=== PATIENT | female | born 1980 | race African-American/Black ===

== ENCOUNTER 2025-03-26 08:11 | Emergency (ER) | payer OTHER, SELFPAY ==
[2025-03-26 08:24] VITALS: BMI 35.3
[2025-03-26 09:11] LABS: Hematocrit 26.8 % (37.0-47.0); Hemoglobin 8.3 g/dL (12.0-16.0); Mean Corp Hgb Conc. 31.0 g/dL (33.0-37.0); Mean Corpuscular Volume 66.0 fL (81.0-99.0); Nucleated Red Blood Cells % 0 %; Platelet Count 247 10^3/uL (130-400); Red Cell Dist. Width 22.3 % (11.5-14.5)
--- NOTE | 2025-03-26 09:12 | ED.GENMED ---
History of Present Illness
General
Chief Complaint: Vaginal Bleeding
Source: patient
Exam Limitations: none
Time Seen by Provider: 03/26/25 08:21
Nursing documentation reviewed up to this point in time: agreed with
History of Present Illness
History of Present Illness:
Patient is a 45-year-old female who presents to the emergency department with concerns of vaginal bleeding. Patient states that she started with vaginal bleeding yesterday evening and initially thought that it was her menses although she was
not expecting her menstrual cycle for another week. Around midnight last night she states bleeding increasing definitely. She states that since last night she has been bleeding through a pad about every 1.5 -2 hours. She also reports passing
small blood clots.
She did have 1 episode of vomiting this morning and reports some lower abdominal cramping. She states that she feels mildly lightheaded however denies any shortness of breath or chest pain.
Patient states she has not seen her DESK LIEUTENANT for the past 2 years as her insurance changed. She does have known uterine fibroids however never had ultrasound imaging performed.
LMP was mid February. No history of abnormal Pap smears.
Past History
Past History
ED Past Medical History: None
ED Past Surgical History: None
Review of Systems
Review of Systems
Allergies reviewed?: Yes
All Other Systems: ROS reviewed and negative except as documented in HPI and ROS
Phy Exam
Physical Exam
Physical Exam:
Vitals: Patient's vital signs are stable. Afebrile
General: Patient is well appearing, no acute distress. Nontoxic appearing
Skin: Warm and dry, no rashes or lesions
Head: Normocephalic, atraumatic
Eyes: Sclera nonicteric.
Throat: Protecting airway
Neck: Normal ROM, no cervical spine tenderness, no meningismus
Cardiac: Regular rate and rhythm, no murmurs.
Pulm: Normal respiratory effort, no wheezes, rales, rhonchi heard on exam
Abdomen: Abdomen soft. Reproducible tenderness in left pelvic region. No rebound tenderness or guarding.
Pelvic: Blood in vaginal vault w/ small clots present.
Extremities: No evidence of cyanosis or edema. 2+ palpable DP pulses bilaterally
Neuro: AAOx3. Grossly intact.
Psychiatric: Normal affect.
Course
Orders/Labs/Results
Orders:
Orders
03/26/25 08:35
Test Result ONCE
03/26/25 08:36
Basic Metabolic Panel Urgent
Complete Blood Count/With Diff Urgent
03/26/25 09:09
0.9% Sodium Chloride 1000 ml [Nss] 1,000 ml IV BOLUS
Ketorolac [Toradol] 15 mg IV NOW STA
Pelvis & Transvaginal US [US Pelvis W Transvag Combined] Urgent
Comment:
Reason For Exam: vaginal bleeding, left pelvic pain
03/26/25 10:05
Add On- LAB Urgent
Tests Added?: potassium
03/26/25 10:31
Add On- LAB Urgent
Tests Added?: urine hcg
03/26/25 14:06
HCG, Urine Qualitative Screen Urgent
Date Specimen was Collected: 03/26/25
Time Specimen was Collected: 10:41
Urinalysis Reflex To Culture Urgent
Date Specimen was Collected: 03/26/25
Time Specimen was Collected: 10:41
Urine Microscopic Reflex Cult Urgent
03/26/25 16:00
Tranexamic Acid [Cyklokapron] 1,300 mg PO TID
Abnormal Lab Results
03/26/25 03/26/25
08:36 14:06
WBC 14.4 H 10^3/uL
(4.8-10.8)
RBC 4.06 L 10^6/uL
(4.20-5.40)
Hgb 8.3 L g/dL
(12.0-16.0)
Hct 26.8 L %
(37.0-47.0)
MCV 66.0 L fL
(81.0-99.0)
MCH 20.4 L pg
(27.0-31.0)
MCHC 31.0 L g/dL
(33.0-37.0)
RDW 22.3 H %
(11.5-14.5)
Abs Immat Gran (auto) 0.1 H 10^3/uL
(0-0.05)
Absolute Neuts (auto) 13.3 H 10^3/uL
(1.4-6.5)
Absolute Lymphs (auto) 0.7 L 10^3/uL
(1.2-3.4)
Neutrophils % 91.9 H %
(42.2-75.2)
Lymphocytes % 4.5 L %
(20.5-51.1)
Chloride 110 H mmol/L
(98-107)
Carbon Dioxide 19 L mmol/L
(22-30)
Creatinine 0.5 L mg/dL
(0.6-1.0)
Glucose 127 H mg/dl
(70-99)
Ur Occult Blood Reflex 4+ A
(Negative)
Urine RBC 40-50 A /HPF
(0-2)
03/26/25 08:36
03/26/25 10:31
Vital Signs
Initial and Last Documented VS:
Initial Vital Signs
Temp Pulse Resp Pulse Ox
98.4 F 85 16 98
03/26/25 08:13 03/26/25 08:13 03/26/25 08:13 03/26/25 08:13
Last Documented Vital Signs
Temp Pulse Resp BP Pulse Ox
98.4 F 80 18 115/80 100
03/26/25 08:13 03/26/25 15:10 03/26/25 15:10 03/26/25 15:10 03/26/25 15:10
MDM/Problems Addressed
Differential Diagnosis Includes:
Not limited to: Menstrual bleeding, abnormal uterine bleeding secondary to uterine fibroids, uterine polyp, malignancy
MDM/Problems Addressed:
45-year-old female with history anemia with 1 day of abnormal uterine bleeding and mild lower abdominal cramping. She had 1 episode of vomiting. No fevers, diarrhea, or anorexia. Patient hemodynamically stable on arrival. Physical exam as above.
Patient well-appearing, in no apparent distress. Abdomen soft without any areas of focal tenderness. She is perfusing well. Pelvic exam does reveal blood in vaginal vault with small clots. Patient is premenopausal. Differential at this point
broad. This may be normal menstrual bleeding however patient states began a few days earlier than expected. Will check lab work and obtain pelvic ultrasound.
Update: Labs reviewed. Leukocytosis noted�possibly reactive from vomiting. Hemoglobin of 8.3. Upon discussion with patient that she does report a history of anemia with possibly a most recent hemoglobin of 6 and she had a transfusion. Ultrasound
shows uterine fibroid without any other acute abnormalities. Urine does not appear infected. Patient is well-appearing and hemodynamically stable. Transfusion not indicated. Case was discussed with DESK LIEUTENANT on-call�will plan to start TXA and have
patient follow-up outpatient. Strict return precautions discussed, patient expressed verbal understanding. She will follow-up with DESK LIEUTENANT outpatient.
Chronic conditions affecting care:
N/A
Acute Exacerbation and/or Progression of Chronic Illness:
Abnormal uterine bleeding
*Radiology
Radiology exam reviewed: radiology read reviewed
*Pulse Oximetry
SaO2: 98
Oxygen Mode of Delivery: Room air
Patient hypoxic: no
*EKG
Interpreted by ED Provider?: NA
*Echo Tech Interpretation
Rate: Echo Tech- N/A
*Critical Care Note
Total Time (30-74mins, 75-104mins- exclusive of procedures): Not Applicable
Patient Management
Discussion with other providers: Railroader (Case discussed with OBGYN)
ED Attending Note
-
Portions of this chart may have been created with voice recognition software.� Occasional wrong word or��sound alike� substitutions may have occurred due to the inherent limitations of voice recognition software.
Discharge Plan
Departure
Patient Disposition: Home (Routine Discharge)
Date of Disposition: 03/26/25
Time of Disposition: 14:55
Patient with high blood pressure during this ER visit?: No
Discharge Problem:
Vaginal bleeding
Instructions: Heavy periods - ED discharge instructions
Prescriptions:
New
tranexamic acid 650 mg tablet
1,300 mg PO TID 5 Days Qty: 30 0RF
No Action
cyclobenzaprine 10 MG tablet
10 mg PO TIDPRN PRN (Reason: muscle spasms) Qty: 15 0RF
Referrals:
Donovan Penny DO [Family Provider, Family Practice]
Henna Vieyra DO [Active, Gynecology] - Follow up in 2-3 days
Activity Restrictions/Additional Instructions:
RETURN TO THE EMERGENCY DEPARTMENT FOR ANY PERSISTENT HEAVY VAGINAL BLEEDING, SHORTNESS OF BREATH, ABDOMINAL PAIN, LIGHTHEADEDNESS/DIZZINESS OR EPISODES OF FAINTING, WORSENING IN CURRENT SYMPTOMS, OR ANY OTHER CONCERNS
-You came to the emergency department today with concerns of heavy vaginal bleeding. This may be secondary to a heavy menstrual period or related to your uterine fibroid.
- As discussed�your hemoglobin was low at 8.3 today. Please ensure that you have repeat lab work to ensure this level is trending up. Your white blood cell count was also elevated which may be secondary to the vomiting although please ensure that
this returns to normal
- A prescription for tranexamic acid has been sent to your pharmacy which you should take 3 times a day for the next 5 days or until bleeding stops.
- It is very important you follow closely with DESK LIEUTENANT for further evaluation/management. Contact information has been provided for you above.
Monitor your symptoms very closely and return to the emergency department with any acute worsening/new symptoms or any persistent bleeding
Interventions
Interventions:
*Risk Screen - Suicide Last Done: 03/26/25 08:13
*General Assessment Last Done: 03/26/25 08:24
*Neglect/Abuse Screening Last Done: 03/26/25 08:13
*ED- Fall Risk Assessment Last Done: 03/26/25 08:24
*ED COVID-19 Vaccine History Last Done: 03/26/25 08:24
*Nursing Disposition Last Done: 03/26/25 15:11
ED-Female Genitourinary Assessment Last Done: 03/26/25 08:24
Discharge Date and Time
Discharge Date/Time: 03/26/25 15:12
Print Language: BENGALI
[2025-03-26] MEDS: TORADOL 15 MG IV (09:19)
[2025-03-26] MEDS: NSS 1000 IV (09:19)
[2025-03-26 09:22] VITALS: BP 125/78
[2025-03-26 09:28] LABS: Blood Urea Nitrogen 9 mg/dl (7-17); Calcium 8.9 mg/dl (8.4-10.2); Carbon Dioxide 19 mmol/L (22-30); Chloride 110 mmol/L (98-107); Estimated Creatinine Clearance 120 ml/min; Glucose 127 mg/dl (70-99); Sodium 137 mmol/L (135-145); eGFR > 60.00
[2025-03-26 10:00] VITALS: BP 116/86
[2025-03-26 14:35] LABS: HCG, Urine Qualitative Screen Negative; Urine Character Clear (Clear)
[2025-03-26 14:59] LABS: Urine Squamous Cell 16-20 /LPF (Few); Urine White Cell 0-2 /HPF (0-5)
[2025-03-26 15:00] LABS: Urine Red Blood Cell 40-50 /HPF (0-2)
[2025-03-26] MEDS: CYKLOKAPRON 1300 MG PO (15:00)
[2025-03-26 15:10] VITALS: BP 115/80
== END 2025-03-26 15:12 | disposition home or self-care (01) ==
LOC: EMR 08:11
PROVIDERS: Physician Assistant; EMERGENCY PHYSICIAN Emergency Medicine; FAMILY PHYSICIAN Family Medicine
DX: N93.9 Abnormal uterine and vaginal bleeding, unspecified (principal); D64.9 Anemia, unspecified; D25.9 Leiomyoma of uterus, unspecified; D72.829 Elevated white blood cell count, unspecified
CPT/HCPCS: 99284; 96374; 96361; 76830; 76856; 80048; 81003; 81015; 81025; 85025

== ENCOUNTER 2025-04-02 12:48 | Emergency (ER) | payer OTHER, SELFPAY ==
[2025-04-02] VITALS (8 sets, daily range): BP systolic 129–166; BP diastolic 72–108
[2025-04-02 13:40] LABS: Hematocrit 20.1 % (37.0-47.0); Hemoglobin 6.1 g/dL (12.0-16.0); Mean Corp Hgb Conc. 30.3 g/dL (33.0-37.0); Mean Corpuscular Volume 68.1 fL (81.0-99.0); Nucleated Red Blood Cells % 0.7 %; Platelet Count 295 10^3/uL (130-400); Red Cell Dist. Width 24.8 % (11.5-14.5)
[2025-04-02 13:48] LABS: Anisocytosis 2+; Hypochromasia 2+; Microcytosis 2+; Normal RBC Morphology No
[2025-04-02 13:49] LABS: Polychromasia 1+
[2025-04-02 14:05] LABS: HCG, Serum Qualitative Screen Negative
[2025-04-02 14:23] LABS: ALT (SGPT) 25 U/L (0-35); AST (SGOT) 22 U/L (14-36); Albumin 3.6 g/dl (3.5-5.0); Alkaline Phosphatase 72 U/L (38-126); Blood Urea Nitrogen 8 mg/dl (7-17); Calcium 8.6 mg/dl (8.4-10.2); Carbon Dioxide 22 mmol/L (22-30); Chloride 112 mmol/L (98-107); Glucose 95 mg/dl (70-99); Potassium 4.2 mmol/L (3.5-5.1); Sodium 140 mmol/L (135-145); Total Protein 6.5 g/dl (6.3-8.2); eGFR > 60.00
--- NOTE | 2025-04-02 15:19 | ED.GENMED ---
History of Present Illness
<Laina Bhardwaj PA-C - Last Filed: 04/02/25 18:31>
General
Chief Complaint: Abnormal Lab Value
Source: patient and records
Exam Limitations: none
Time Seen by Provider: 04/02/25 14:59
History of Present Illness
History of Present Illness:
45yoF with a history of uterine fibroids presenting for evaluation of an abnormal outpatient lab. Patient was seen in the ED 1 week ago for vaginal bleeding. Hemoglobin was 8.3 at that time. Pelvic ultrasound showed evidence of a fibroid and an
endometrial stripe of 18mm. Patient was discharged with a prescription for oral TXA. She took her last dose this morning. She states her bleeding has significantly improved and she only had to use 1 panty liner yesterday and 1 panty liner so far
today. She did see her MILL HOUSE SUPERVISOR 2 days ago[address] Citlaly Hart ([facility]) and saw the PARTITION SETTER at the office. She had an endometrial biopsy during her appointment. She was given options including a myomectomy or hysterectomy but she is
still deciding how she wants to proceed. She had outpatient blood work yesterday. She called the infusion center today to schedule her iron infusions for next week and she was told to go to the ED for a hemoglobin of 6.0. Patient is symptomatic
with fatigue and dizziness. She denies any syncope. She is not currently on any prescription iron supplements but does take Floradix OTC.
Past History
<Laina Bhardwaj PA-C - Last Filed: 04/02/25 18:31>
Past History
ED Past Medical History: None
ED Past Surgical History: None
Phy Exam
<Laina Bhardwaj PA-C - Last Filed: 04/02/25 18:31>
General Physical Exam
General Presentation: well appearing and no apparent distress
General Skin: warm and dry
General Habitus: normal
General Mental: alert
ENT Exam
ENT Exam: normocephalic
Pulmonary Exam
Pulmonary Exam: no respiratory distress
Gastrointestinal Exam
Gastrointestinal Exam: non tender, soft and non distended
Genitourinary Exam Female
Exam Female: other (Small amount of vaginal bleeding noted on speculum exam. No clots.)
Neurological Exam
Neurological Exam: alert
[place] Coma Scale
Eye Opening: Spontaneous
Verbal Response: Oriented
Motor Response: Obeys Commands
GCS Total Score: 15
Skin Exam
Skin Exam: normal color and warm/dry
Psychiatric Exam
Psychiatric Exam: normal mood/affect
<Ho Garcia MD - Last Filed: 04/02/25 19:08>
[place] Coma Scale
GCS Total Score: 15
Course
<Laina Bhardwaj PA-C - Last Filed: 04/02/25 18:31>
Orders/Labs/Results
Orders:
Orders
04/02/25 13:05
Test Result ONCE
04/02/25 13:18
Type+Screen Urgent
Complete Blood Count/With Diff Urgent
Comprehensive Metabolic Panel Urgent
HCG, Serum Qualitative Screen Urgent
04/02/25 14:50
ABO2 Routine
BBK Wristband Number:
Associate notified that ABO2 has been ordered: [id number]
Date: 04/02/25
Time: 13:43
Electrical Sign Wirer ID: [id number]
04/02/25 15:13
Blood Bank Products [* Blood Bank Products] Urgent
Blood Bank Products: *Packed RBC Leuko(PRBC's)
Quantity: 1
Transfuse Today: Yes
Reason: Anemia
Abnormal Lab Results
04/02/25
13:18
WBC 12.0 H 10^3/uL
(4.8-10.8)
RBC 2.95 L 10^6/uL
(4.20-5.40)
Hgb 6.1 L* g/dL
(12.0-16.0)
Hct 20.1 L* %
(37.0-47.0)
MCV 68.1 L fL
(81.0-99.0)
MCH 20.7 L pg
(27.0-31.0)
MCHC 30.3 L g/dL
(33.0-37.0)
RDW 24.8 H %
(11.5-14.5)
Abs Immat Gran (auto) 0.1 H 10^3/uL
(0-0.05)
Absolute Neuts (auto) 9.0 H 10^3/uL
(1.4-6.5)
Absolute Lymphs (auto) 1.1 L 10^3/uL
(1.2-3.4)
Absolute Monos (auto) 1.4 H 10^3/uL
(0.1-0.6)
Immature Gran % 0.8 H %
(0-0.5)
Lymphocytes % 9.5 L %
(20.5-51.1)
Monocytes % 11.8 H %
(1.7-9.3)
Chloride 112 H mmol/L
(98-107)
Crossmatch IS Only See Detail
04/02/25 13:18
04/02/25 13:18
Vital Signs
Initial and Last Documented VS:
Initial Vital Signs
Temp Pulse Resp BP Pulse Ox
99.4 F 87 18 129/72 100
04/02/25 12:59 04/02/25 12:59 04/02/25 12:59 04/02/25 12:59 04/02/25 12:59
Last Documented Vital Signs
Temp Pulse Resp BP Pulse Ox
98.8 F 75 19 136/92 100
04/02/25 17:30 04/02/25 17:30 04/02/25 17:30 04/02/25 17:30 04/02/25 17:30
<Ho Garcia MD - Last Filed: 04/02/25 19:08>
Orders/Labs/Results
Orders:
Orders
04/02/25 13:05
Test Result ONCE
04/02/25 13:18
Type+Screen Urgent
Complete Blood Count/With Diff Urgent
Comprehensive Metabolic Panel Urgent
HCG, Serum Qualitative Screen Urgent
04/02/25 14:50
ABO2 Routine
BBK Wristband Number:
Associate notified that ABO2 has been ordered: [id number]
Date: 04/02/25
Time: 13:43
Electrical Sign Wirer ID: [id number]
04/02/25 15:13
Blood Bank Products [* Blood Bank Products] Urgent
Blood Bank Products: *Packed RBC Leuko(PRBC's)
Quantity: 1
Transfuse Today: Yes
Reason: Anemia
Abnormal Lab Results
04/02/25
13:18
WBC 12.0 H 10^3/uL
(4.8-10.8)
RBC 2.95 L 10^6/uL
(4.20-5.40)
Hgb 6.1 L* g/dL
(12.0-16.0)
Hct 20.1 L* %
(37.0-47.0)
MCV 68.1 L fL
(81.0-99.0)
MCH 20.7 L pg
(27.0-31.0)
MCHC 30.3 L g/dL
(33.0-37.0)
RDW 24.8 H %
(11.5-14.5)
Abs Immat Gran (auto) 0.1 H 10^3/uL
(0-0.05)
Absolute Neuts (auto) 9.0 H 10^3/uL
(1.4-6.5)
Absolute Lymphs (auto) 1.1 L 10^3/uL
(1.2-3.4)
Absolute Monos (auto) 1.4 H 10^3/uL
(0.1-0.6)
Immature Gran % 0.8 H %
(0-0.5)
Lymphocytes % 9.5 L %
(20.5-51.1)
Monocytes % 11.8 H %
(1.7-9.3)
Chloride 112 H mmol/L
(98-107)
Crossmatch IS Only See Detail
04/02/25 13:18
04/02/25 13:18
Vital Signs
Initial and Last Documented VS:
Initial Vital Signs
Temp Pulse Resp BP Pulse Ox
99.4 F 87 18 129/72 100
04/02/25 12:59 04/02/25 12:59 04/02/25 12:59 04/02/25 12:59 04/02/25 12:59
Last Documented Vital Signs
Temp Pulse Resp BP Pulse Ox
98.8 F 75 19 136/92 100
04/02/25 17:30 04/02/25 17:30 04/02/25 17:30 04/02/25 17:30 04/02/25 17:30
[place];Laina Bhardwaj PA-C - Last Filed: 04/02/25 18:31>
MDM/Problems Addressed
Differential Diagnosis Includes:
45yoF here with a hemoglobin of 6.0 on outpatient labs yesterday. Seen in ED 1 week ago for vaginal bleeding and hemoglobin was 8.3 at that time. Finished course of oral TXA this morning and bleeding much improved. Only used 1 panty liner yesterday
and 1 so far today. C/o fatigue and dizziness. VSS. She is well appearing in no distress. Only a small amount of vaginal bleeding noted on speculum exam. Differential diagnosis includes but is not limited to: Acute blood loss anemia, menorrhagia,
vaginal bleeding related to fibroids
Triage lab work obtained and hemoglobin is 6.1 today. Consent obtained and 1 unit PRBCs ordered for transfusion. I called her OB office and spoke with Robert gear hobber operator, at the office who agrees with discharge after transfusion given that bleeding has
significantly improved. Will start patient on prescription iron supplement as she is only taking something OTC. The OB office will call patient on Saturday to ensure the outpatient iron infusions are scheduled. Patient in agreement with plan and was
discharged in stable condition after transfusion complete.
<Laina Bhardwaj PA-C - Last Filed: 04/02/25 18:31>
*Pulse Oximetry
SaO2: 100
Oxygen Mode of Delivery: Room air
Patient hypoxic: no (100%)
*Critical Care Note
Total Time (30-74mins, 75-104mins- exclusive of procedures): Not Applicable
ED Attending Note
<Laina Bhardwaj PA-C - Last Filed: 04/02/25 18:31>
-
Portions of this chart may have been created with voice recognition software.� Occasional wrong word or��sound alike� substitutions may have occurred due to the inherent limitations of voice recognition software.
<Ho Garcia MD - Last Filed: 04/02/25 19:08>
ED Attending Note
Patient seen and examined by attending physician: Yes
I performed the substantive portion of visit, reviewed & personally made and approve the management plan that is documented in note by myself or RICKY.: Yes
ED Attending Note:
Patient sent in for low hemoglobin. Has had ongoing vaginal bleeding. Seen last week for same. Ultrasound at that time showed fibroids. Had a recent endometrial biopsy. Hemoglobin yesterday was 6.0. Feels generally weak but not unusually weak.
No abdominal pain. Bleeding is minimal.
On exam patient is nontoxic in no distress. Stable vital signs. Abdomen soft nontender. Warm and dry. Perfusing well. No respiratory distress.
Bleeding is almost nonexistent on the TXA. Reasonable to give a unit of blood and close follow-up. This was discussed with patient's MILL HOUSE SUPERVISOR by our physician diver assistant. Patient is comfortable with this approach
Discharge Plan
Departure
Patient Disposition: Home (Routine Discharge)
Date of Disposition: 04/02/25
Time of Disposition: 17:33
Patient with high blood pressure during this ER visit?: No
Discharge Problem:
Acute blood loss anemia
Instructions: Anemia in adults, possibly from low iron - ED discharge instructions
Prescriptions:
New
ferrous gluconate 324 mg (38 mg iron) tablet
324 mg PO DAILY Qty: 30 0RF
No Action
tranexamic acid 650 mg tablet
1,300 mg PO TID 5 Days Qty: 30 0RF
Rx Instructions:
for 5 days starting 03/26/25
naproxen 500 mg Tablet
500 mg PO DAILYPRN PRN (Reason: mild pain)
Referrals:
Donovan Penny DO [Family Provider, Family Practice]
Stand Alone Forms: Return to Work
Activity Restrictions/Additional Instructions:
Take iron supplement as prescribed.
Please follow-up with your MILL HOUSE SUPERVISOR on Saturday. Return to the ER with any worsening symptoms including passing out or heavy vaginal bleeding.
Interventions
Interventions:
*Risk Screen - Suicide Last Done: 04/02/25 12:59
*General Assessment Last Done: 04/02/25 12:59
*Neglect/Abuse Screening Last Done: 04/02/25 12:59
*ED- Fall Risk Assessment Last Done: 04/02/25 15:05
*ED COVID-19 Vaccine History Last Done: 04/02/25 15:05
*Nursing Disposition Last Done: 04/02/25 17:38
Discharge Date and Time
Discharge Date/Time: 04/02/25 17:38
Print Language: [id number]
== END 2025-04-02 17:38 | disposition home or self-care (01) ==
LOC: EMR 12:48
PROVIDERS: Emergency Medicine; EMERGENCY PHYSICIAN Emergency Medicine; FAMILY PHYSICIAN Family Medicine
DX: D62 Acute posthemorrhagic anemia (principal); Z86.018 Personal history of other benign neoplasm
CPT/HCPCS: 99282; 36430; 80053; 84703; 85025; 86850; 86900; 86901; 86920; P9016

== ENCOUNTER 2025-05-17 12:15 | Emergency (ER) | payer OTHER, SELFPAY ==
[2025-05-17 12:16] VITALS: BP 132/92
--- NOTE | 2025-05-17 13:54 | ED.GENMED ---
History of Present Illness
General
Chief Complaint: Breathing Problem
Source: patient
Time Seen by Provider: 05/17/25 13:44
History of Present Illness
History of Present Illness:
45 yr old female presents to ED with c/o persistent cough (dry) and sob for at least a few weeks...getting worse this weekend, which prompted her visit here. She denies f/c/n/v/abd pain/neck or back pain. No leg swelling, but does feel thigh area
is 'sensitive' which is new since starting the OCP. She suspects it is related to that. She denies smoking hx, st, rhinorrhea. She has intermittent nonpleuritic cp which has been worked up thus far, unremkarable. Pt recently tx'd for bleeding
related to fibroid, but on ocp, getting Fe tx.
Past History
Past History
ED Past Medical History: Other (fibroid)
ED Past Surgical History: None
Social History
Tobacco: Non-smoker
Alcohol: Occasional
Drug: None
Personal: Single
Phy Exam
Physical Exam
Physical Exam:
aao times three
pupils equal and round
mmm, o/p clear, voice clear
neck supple
hrt rrr
lung cta, no w/r/r
abd soft, nt, nd
extrem no c/c/e, neg homans
neuro intact
skin warm, well perfused
psych pleaseant appropriate
Scores
Heart Failure Risk
Heart Failure Risk Score: Not Applicable
Course
Orders/Labs/Results
Orders:
Orders
05/17/25 12:22
Electrocardiogram (*1) Urgent
Reason for Study: Tachycardia
05/17/25 12:23
EKG- Treatment ONCE
05/17/25 13:58
Basic Metabolic Panel Urgent
Complete Blood Count/No Diff Urgent
D-Dimer Urgent
05/17/25 14:33
CT Chest PE Study Urgent
Comment:
Reason For Exam: sob, on ocp, d dimer elevation
Abnormal Lab Results
05/17/25
13:58
WBC 12.0 H 10^3/uL
(4.8-10.8)
Hgb 10.6 L g/dL
(12.0-16.0)
Hct 32.9 L %
(37.0-47.0)
MCV 74.6 L fL
(81.0-99.0)
MCH 24.0 L pg
(27.0-31.0)
MCHC 32.2 L g/dL
(33.0-37.0)
RDW 24.7 H %
(11.5-14.5)
D-Dimer 0.67 H ug/mlFEU
(0.00-0.50)
05/17/25 13:58
05/17/25 13:58
Vital Signs
Initial and Last Documented VS:
Initial Vital Signs
Temp Pulse Resp BP Pulse Ox
98.4 F 106 18 132/92 98
05/17/25 12:16 05/17/25 12:16 05/17/25 12:16 05/17/25 12:16 05/17/25 12:16
Last Documented Vital Signs
Temp Pulse Resp BP Pulse Ox
98.4 F 106 18 132/92 98
05/17/25 12:16 05/17/25 12:16 05/17/25 12:16 05/17/25 12:16 05/17/25 13:58
MDM/Problems Addressed
Differential Diagnosis Includes:
but not limited to pe, gerd, anemia, reactive airway dz, acs, etc etc
*Pulse Oximetry
SaO2: 98
Oxygen Mode of Delivery: Room air
Patient hypoxic: no
*EKG
Interpreted by ED Provider?: Yes
Interpretation: normal
Rate: normal
Rhythm: sinus
[place]: normal axis
Ischemia: no ischemia
*Critical Care Note
Total Time (30-74mins, 75-104mins- exclusive of procedures): Not Applicable
Update Note
Update Note:
2:33 PM mild leukocytosis nonspecific, hemoglobin at 10.6 which is baseline as per patient. Very mild D-dimer elevation, cannot age-adjusted based on patient's age, therefore CT scan ordered
Patient presents to the Emergency Department with cp, sob, leg snesitivity
Number and Complexity of Problems Addressed at the Encounter
� Chronic conditions affecting care:
� Acute Exacerbation and/or Progression of Chronic Illness:
� Differential Diagnosis includes:
Amount and/or Complexity of Data to be Reviewed and Analyzed
� I performed an independent evaluation of and my interpretation is:
EKG: Read by me normal sinus rhythm, normal rate, normal axis, no acute ischemia
CT:Mild bilateral axillary lymphadenopathy.
2. Mild scarring and subsegmental atelectasis in the basilar segments of the lower lobes.
Xrays:
Laboratory Studies see above
Other:
� Review of other/old records reveals:
� Clinical information was obtained by an independent historian:
� Prescriptions/Medications Considered but not given:
� Further testing considered but not performed:
Risk of Complications and/or Morbidity or Mortality of Patient Management
� Social determinants of health affecting care:
� Discussion with other providers (PCP, Hospitalists, Consultants, etc):
� Escalation of care including admission/observation vs risk of discharge considered: Patient remained stable here. She has follow-up with pulmonary already arranged. She was given a copy of her CAT scan report as well as a
disk of the actual images to bring to her pulmonary doctor. I did alert her of the findings including the axillary lymphadenopathy and the importance of follow-up regarding.
ED Attending Note
-
Portions of this chart may have been created with voice recognition software.� Occasional wrong word or��sound alike� substitutions may have occurred due to the inherent limitations of voice recognition software.
Discharge Plan
Departure
Patient Disposition: Home (Routine Discharge)
Date of Disposition: 05/17/25
Time of Disposition: 17:44
Patient with high blood pressure during this ER visit?: Yes
Condition: Good
Discharge Problem:
Dyspnea, Cough
Instructions: Shortness of Breath (Dyspnea) (DC), BLOOD PRESSURE
Prescriptions:
No Action
tranexamic acid 650 mg tablet
1,300 mg PO TID 5 Days Qty: 30 0RF
Rx Instructions:
for 5 days starting 03/26/25
naproxen 500 mg Tablet
500 mg PO DAILYPRN PRN (Reason: mild pain)
ferrous gluconate 324 mg (38 mg iron) tablet
324 mg PO DAILY Qty: 30 0RF
Referrals:
Donovan Penny DO [Family Provider, Family Practice] - Next open appointment
Activity Restrictions/Additional Instructions:
PLEASE FOLLOW-UP WITH YOUR DOCTOR THIS WEEK. IF YOU DEVELOP BLEEDING, FEVER, INCREASING OR NEW SHORTNESS OF BREATH, RASH, SWELLING, WEAKNESS, NUMBNESS, ABDOMINAL PAIN, PERSISTENT CHEST PAIN, OR OTHER WORRISOME SIGNS, PLEASE RETURN TO THE ER
IMMEDIATELY!
Interventions
Interventions:
*Risk Screen - Suicide Last Done: 05/17/25 12:16
*Neglect/Abuse Screening Last Done: 05/17/25 12:16
ED- Cardiac Assessment Last Done: 05/17/25 13:59
ED- Pulmonary Assessment Last Done: 05/17/25 13:59
Discharge Date and Time
Print Language: [place]
[2025-05-17 14:00] VITALS: BMI 33.9
[2025-05-17 14:13] LABS: Hematocrit 32.9 % (37.0-47.0); Hemoglobin 10.6 g/dL (12.0-16.0); Mean Corp Hgb Conc. 32.2 g/dL (33.0-37.0); Mean Corpuscular Volume 74.6 fL (81.0-99.0); Platelet Count 275 10^3/uL (130-400); Red Cell Dist. Width 24.7 % (11.5-14.5)
[2025-05-17 14:21] LABS: D-Dimer 0.67 ug/mlFEU (0.00-0.50)
[2025-05-17 14:22] LABS: Blood Urea Nitrogen 9 mg/dl (7-17); Calcium 9.2 mg/dl (8.4-10.2); Carbon Dioxide 22 mmol/L (22-30); Chloride 107 mmol/L (98-107); Estimated Creatinine Clearance 101 ml/min; Glucose 87 mg/dl (70-99); Potassium 4.5 mmol/L (3.5-5.1); Sodium 137 mmol/L (135-145); eGFR > 60.00
--- NOTE | 2025-05-17 18:10 | EDRN ---
Attempted to copy films, disc burner not working. Pt informed. She will contact medical records prior to [place] [facility] f/u.
== END 2025-05-17 18:21 | disposition home or self-care (01) ==
LOC: EMR 12:15
PROVIDERS: EMERGENCY PHYSICIAN Emergency Medicine; FAMILY PHYSICIAN Family Medicine
DX: R06.00 Dyspnea, unspecified (principal); R05.9 Cough, unspecified; R00.0 Tachycardia, unspecified; D72.829 Elevated white blood cell count, unspecified; R59.0 Localized enlarged lymph nodes
CPT/HCPCS: 99284; 71275; 80048; 85027; 85379; 93005; Q9967

== ENCOUNTER 2025-06-10 08:27 | Outpatient (RCR) | payer OTHER, SELFPAY ==
[2025-06-10] MEDS: VENOFER 265 MG IV (09:01)
[2025-06-10 09:10] VITALS: BP 128/86
[2025-06-10 10:40] VITALS: BP 133/84
== END 2025-06-18 23:59 | disposition home or self-care (01) ==
LOC: OID 08:27
PROVIDERS: ATTENDING PHYSICIAN Student in an Organized Health Care Education/Training Program
DX: D50.9 Iron deficiency anemia, unspecified (principal); D25.9 Leiomyoma of uterus, unspecified
CPT/HCPCS: 96365; 96366; J1756